=== PATIENT | male | born 1975 | race Caucasian/White ===

== ENCOUNTER 2016-05-29 07:52 | Outpatient (CLI) | payer OTHER | END 2016-05-29 07:53 | disposition home or self-care (01) | DX: M25.571 Pain in right ankle and joints of right foot (principal); I10 Essential (primary) hypertension ==

== ENCOUNTER 2017-03-31 10:01 | Outpatient (CLI) | payer OTHER | END 2017-03-31 10:02 | disposition home or self-care (01) | LOC: SC 10:01 | PROVIDERS: ATTEND Internal Medicine Pulmonary Disease | DX: G47.30 Sleep apnea, unspecified (principal); G47.10 Hypersomnia, unspecified; R06.83 Snoring | CPT/HCPCS: 99203; 99212 ==

== ENCOUNTER 2017-05-07 22:09 | Outpatient (CLI) | payer OTHER | END 2017-05-07 22:10 | disposition home or self-care (01) | LOC: SC 22:09 | PROVIDERS: ATTEND Internal Medicine Pulmonary Disease | DX: G47.33 Obstructive sleep apnea (adult) (pediatric) (principal); G47.61 Periodic limb movement disorder | CPT/HCPCS: 95810 ==

== ENCOUNTER 2017-05-18 09:46 | Outpatient (CLI) | payer OTHER | END 2017-05-18 09:47 | disposition home or self-care (01) | LOC: SC 09:46 | PROVIDERS: ATTEND Internal Medicine Pulmonary Disease | DX: G47.33 Obstructive sleep apnea (adult) (pediatric) (principal); G47.61 Periodic limb movement disorder | CPT/HCPCS: 99212; 99213 ==

== ENCOUNTER 2017-06-09 19:30 | Outpatient (CLI) | payer OTHER | END 2017-06-09 19:31 | disposition home or self-care (01) | LOC: SC 19:30 | PROVIDERS: ATTEND Internal Medicine Pulmonary Disease | DX: G47.33 Obstructive sleep apnea (adult) (pediatric) (principal); G47.61 Periodic limb movement disorder | CPT/HCPCS: 95811 ==

== ENCOUNTER 2017-07-07 08:51 | Outpatient (CLI) | payer OTHER | END 2017-07-07 08:52 | disposition home or self-care (01) | LOC: SC 08:51 | PROVIDERS: ATTEND Nurse Practitioner Family | DX: G47.33 Obstructive sleep apnea (adult) (pediatric) (principal); G47.61 Periodic limb movement disorder; I49.9 Cardiac arrhythmia, unspecified | CPT/HCPCS: 99212; 99214 ==

== ENCOUNTER 2017-12-07 08:49 | Outpatient (CLI) | payer OTHER | END 2017-12-07 08:50 | disposition home or self-care (01) | LOC: SC 08:49 | PROVIDERS: ATTEND Nurse Practitioner Family | DX: G47.33 Obstructive sleep apnea (adult) (pediatric) (principal) | CPT/HCPCS: 99212; 99214 ==

== ENCOUNTER 2018-12-24 07:56 | Outpatient (CLI) | payer OTHER ==
[2018-12-24 13:26] LABS: ALBUMIN 4.5 g/dL (3.2-5.5); ALBUMIN/GLOBULIN RATIO 1.4 (1.0-2.2); ALKALINE PHOSPHATASE 38 IU/L (42-121); ALT ALANINE AMINOTRANSFERASE 48 IU/L (10-60); AST ASPARTATE AMINOTRANSFERASE 27 IU/L (10-42); BILIRUBIN,TOTAL 0.6 mg/dL (0.2-1.0); BUN - BLOOD UREA NITROGEN 19 mg/dL (6-20); CALCIUM 9.8 mg/dL (8.5-10.3); CARBON DIOXIDE - CO2 30 mmol/L (21-32); CHLORIDE 102 mmol/L (101-111); CHOL/HDL RATIO 5.3 (<5.0); CHOLESTEROL 201 mg/dL; CREATININE 1.3 mg/dL (0.6-1.2); GFR - MDRD 60 (>89); GLUCOSE 104 mg/dL (70-100); HDL CHOLESTEROL 38 mg/dL; LDL CHOLESTEROL,CALCULATED 144 mg/dL; LDL/HDL RATIO 3.8 (<3.6); SODIUM 142 mmol/L (135-145); TOTAL PROTEIN 7.7 g/dL (6.7-8.2); VLDL CHOLESTEROL 19 mg/dL
== END 2018-12-24 23:59 | disposition home or self-care (01) ==
LOC: LAB.WCP 07:56
PROVIDERS: ATTEND Family Medicine
DX: I10 Essential (primary) hypertension (principal); E78.5 Hyperlipidemia, unspecified
CPT/HCPCS: 36415; 80053; 80061; 83721

== ENCOUNTER 2021-07-01 07:55 | Outpatient (CLI) | payer OTHER ==
--- NOTE | 2021-07-01 14:07 | XRAY Report ---
PROCEDURE: Knee 3 View RT INDICATIONS: R KNEE PX TECHNIQUE: 3 views of the right knee(s) were acquired. COMPARISON: None. FINDINGS: Bones: No fractures or dislocations. No suspicious bony lesions. Moderate medial compartment narro wing. No erosions or periarticular osteophytes. Soft tissues: Mild joint effusion. No suspicious soft tissue calcifications. IMPRESSION: No visualized acute fracture or dislocation. However, occult injury cannot be excluded. Recommend jonathan rt interval imaging follow-up in 7-10 days as clinically indicated for additional evaluation. Reviewed by: Piper Blank MD on 07/01/2021 2:05 PM PDT Approved by: Piper Blank MD on 07/01/2021 2:05 PM PDT Station ID: [id number]
== END 2021-07-01 07:56 | disposition home or self-care (01) ==
LOC: DI.N 07:55
PROVIDERS: ATTEND Physician Assistant
DX: M25.561 Pain in right knee (principal)